=== PATIENT | female | born 1950 | race Hispanic/Latino ===

== ENCOUNTER 2017-03-13 17:45 | Emergency (ER) | payer BC ==
[~2017-03-13] VITALS: Ht 149.9 cm; Wt 61.2 kg
[2017-03-13 19:29] LABS: BILIRUBIN,URINE NEGATIVE (NEGATIVE); CLARITY,URINE CLEAR (CLEAR); COLOR,URINE YELLOW (YELLOW); KETONES,URINE NEGATIVE (NEGATIVE); LEUKOCYTE ESTERASE ,URINE NEGATIVE (NEGATIVE); NITRITE,URINE NEGATIVE (NEGATIVE); PROTEIN,URINE DIPSTICK NEGATIVE (NEGATIVE); URINE UROBILINOGEN 0.2 mg/dL (0.2 - 1)
[2017-03-13 19:43] LABS: EPITHELIAL CELLS,URINE RARE /LPF
[2017-03-13 20:21] LABS: BASOPHILS % 0.5 % (0.0-1.0); EOSINOPHILS % 0.7 % (0.0-6.0); HEMATOCRIT 46.1 % (34.2-44.1); HEMOGLOBIN 14.8 g/dL (12.0-16.0); LYMPHOCYTES # (AUTO) 1.6 (1.0-3.2); LYMPHOCYTES % 25.3 % (18.0-39.1); MEAN CORPUSCULAR HEMOGLOBIN 26.5 pg (28-32); MEAN CORPUSCULAR HGB CONC 32.1 g/dL (31-35); MEAN CORPUSCULAR VOLUME 82.6 fL (81-99); MONOCYTES # (AUTO) 0.6 (0.2-0.8); MONOCYTES % 9.5 % (4.4-11.3); NEUTROPHILS # (AUTO) 3.9 (2.1-6.9); NEUTROPHILS % 63.5 % (38.7-80.0); PLATELET COUNT 215 x10e3/uL (140-360); RED BLOOD COUNT 5.58 x10e6/uL (3.6-5.1); RED CELL DISTRIBUTION WIDTH 13.3 % (11.7-14.4)
[2017-03-13 20:32] LABS: INR 0.91; PROTHROMBIN TIME 12.7 seconds (11.9-14.5)
[2017-03-13 20:33] LABS: PARTIAL THROMBOPLASTIN TIME 27.5 seconds (23.8-35.5)
[2017-03-13 20:39] LABS: ALANINE AMINOTRANSFERASE 23 IU/L (0-55); ALKALINE PHOSPHATASE 143 IU/L (40-150); BLOOD UREA NITROGEN 10 mg/dL (7-26); BUN/CREATININE RATIO 13 (6-25); CALCIUM 10.1 mg/dL (8.4-10.2); CARBON DIOXIDE 26 mmol/L (22-29); CHLORIDE 102 mmol/L (98-107); CREATININE, SERUM 0.79 mg/dL (0.57-1.11); EST GLOMERULAR FILTRATION RATE > 60 ML/MIN (60-); GLUCOSE 155 mg/dL (74-118); SODIUM 138 mmol/L (136-145)
--- NOTE | 2017-03-13 21:33 | Diagnostic Imaging Report ---
CHEST SINGLE (PORTABLE), 03/13/2017 7:12 PM Technique: CHEST SINGLE (PORTABLE) Comparison: None available. Clinical history: Shortness of breath Findings: See Impression Impression: 1. Mildly enlarged cardiomediastinal silhouette. 2. Central vascular congestion. No consolidation. 3. No effusion or pneumothorax. Signed by: Dr Cindy Edmonsdon MD on 03/13/2017 9:30 PM
== END 2017-03-13 22:26 | disposition home or self-care (01) ==
LOC: ER 17:45
DX: R11.2 Nausea with vomiting, unspecified (principal); R19.5 Other fecal abnormalities; Z87.19 Personal history of other diseases of the digestive system
CPT/HCPCS: 36415; 71010; 80053; 81001; 82270; 85025; 85610; 85730; 86850; 86900; 93005; 99284